=== PATIENT | male | born 1960 | race Caucasian/White ===

== ENCOUNTER → 2017-03-27 | Outpatient (CLI) | payer OTHER ==
--- NOTE | 2017-03-27 19:40 | XR ---
EXAMINATION TYPE: XR chest 2V DATE OF EXAM: 03/27/2017 COMPARISON: Prior chest x-ray 11/30/2014 HISTORY: COPD TECHNIQUE: Frontal and lateral views of the chest are obtained. FINDINGS: There is no focal air space opacity, pleural effusion, or pneumothorax seen. Prominent maine ng volumes suggest underlying COPD. Biapical pleural thickening is stable. The heart is small. The o sseous structures are intact. IMPRESSION: Stable exam, no acute abnormality.
--- NOTE | 2017-03-27 20:48 | MR ---
EXAMINATION TYPE: MR knee LT wo con DATE OF EXAM: 03/27/2017 COMPARISON: Prior knee MRI 10/13/2015 HISTORY: Left Knee pain x20 years TECHNIQUE: Multiplanar, multisequence imaging of the left knee is performed without IV contrast. FINDINGS: MEDIAL MENISCUS: Anterior and posterior horns are intact without tear. LATERAL MENISCUS: Anterior and posterior horns are intact without tear. CRUCIATE LIGAMENTS: The anterior and posterior cruciate ligaments are intact and unremarkable. COLLATERAL LIGAMENTS: The medial collateral ligament and lateral collateral ligament complex are inta ct and unremarkable. EXTENSOR MECHANISM: Visualized quadriceps and patellar tendons are intact. EFFUSION: Small effusion again noted as on prior exam POPLITEAL CYST: No popliteal/quezada cyst. 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 OTHER: No additional significant abnormality is appreciated. IMPRESSION: Stable exam. Findings of chondromalacia patella.
== END ==
LOC: RADMRIMAIN 19:21
PROVIDERS: ATTEND Internal Medicine
DX: M22.42 Chondromalacia patellae, left knee (principal); J44.9 Chronic obstructive pulmonary disease, unspecified
CPT/HCPCS: 71020

== ENCOUNTER → 2018-10-05 | Outpatient (CLI) | payer MEDICARE ==
--- NOTE | 2018-10-05 22:30 | MR ---
EXAMINATION TYPE: MR lumbar spine wo con DATE OF EXAM: 10/05/2018 COMPARISON: MRI lumbar spine October 13, 2015. HISTORY: Chronic LBP, BLE radic, no surgery/trauma TECHNIQUE: Multiplanar, multisequence imaging of the lumbar spine is performed without IV contrast. FINDINGS: Sagittal images of the lumbar spine show vertebral body heights and alignment to remain sat isfactory. Multilevel disc desiccation is redemonstrated with moderate to advanced disc space narrowi ng and vacuum disc phenomenon L5-S1 level again seen on sagittal images. No new large posterior disc herniations are present. The conus medullaris remains stable in position and signal ending superior L2 level. The bone marrow signal intensity is overall heterogeneous. Axial images at the T12-L1 level and L1-L2 levels show mild facet degenerative changes bilaterally wi thout suspicious disc herniation, spinal canal is preserved. Bilateral neural foramina are patent. No significant change from prior study. Axial images at L2-L3 level show mild broad disc bulge and mild facet degenerative changes bilaterall y. Spinal canal is preserved. Bilateral neuroforamina are patent. No significant change from prior. Axial images at L3-L4 level due to mild broad disc bulge and mild facet degenerative changes bilatera lly. Spinal canal is preserved. There is minimal to mild bilateral anterior inferior neural foraminal narrowing redemonstrated. No significant change from prior. Axial images at L4-L5 level show mild to moderate facet degenerative changes bilaterally. There is mi ld to moderate broad disc bulge seen. Spinal canal is preserved. There is mild right-sided anterior i nferior neural foraminal narrowing noted. No significant change from prior. Left-sided neural foramin a is patent. Axial images at L5-S1 level showed broad disc bulge with left lateral disc protrusion component and m [id number]-sd-gjvehris facet degenerative changes bilaterally. This [id number] left-sided inferior blaidmir ral foraminal narrowing. Right-sided neural foramen is patent. No significant change from prior. No suspicious incidental retroperitoneal findings are seen. IMPRESSION: Multilevel degenerative changes in lumbar spine as detailed above, no significant change or progression from 2016 MRI noted..
--- NOTE | 2018-10-05 22:33 | MR ---
EXAMINATION TYPE: MR knee LT wo con DATE OF EXAM: 10/05/2018 COMPARISON: MRI left knee March 27, 2017 HISTORY: Chronic lt knee pain, hx of injury several years ago TECHNIQUE: Multiplanar, multisequence images of the knee is performed without IV contrast. FINDINGS: MEDIAL MENISCUS: Anterior and posterior horns are intact without tear. LATERAL MENISCUS: Anterior and posterior horns are intact without tear. CRUCIATE LIGAMENTS: The anterior and posterior cruciate ligaments are intact and unremarkable. COLLATERAL LIGAMENTS: The medial collateral ligament and lateral collateral ligament complex are inta ct and unremarkable. EXTENSOR MECHANISM: Visualized quadriceps and patellar tendons are intact. EFFUSION: No significant suprapatellar joint effusion. POPLITEAL CYST: No popliteal/quezada cyst. TRICOMPARTMENT SPACES: Mild to moderate narrowing inferior patellofemoral compartment remains present . Medial and lateral tibiofemoral compartments are maintained. Mild patellofemoral compartment spurri ng is seen. CARTILAGE: There is focal chondral malacia patella with full-thickness cartilaginous loss along poste rior patellar pole particularly inferiorly. Some reactive osseous changes on posterior aspect of chowdary llar identified. BONE MARROW SIGNAL: No new bone marrow changes identified outside of the posterior patella. OTHER: No additional significant abnormality is appreciated. IMPRESSION: Redemonstration of patellofemoral degenerative change with significant chondromalacia pat cristhian redemonstrated. No new meniscal or ligamentous tear is seen. No significant change from prior MR I.
== END | disposition home or self-care (01) ==
LOC: RADMRIMAIN 19:10
PROVIDERS: ATTEND Internal Medicine
DX: M47.816 Spondylosis without myelopathy or radiculopathy, lumbar region (principal); M22.42 Chondromalacia patellae, left knee; M17.12 Unilateral primary osteoarthritis, left knee
CPT/HCPCS: 72148

== ENCOUNTER → 2021-01-17 | Outpatient (CLI) | payer MEDICARE ==
--- NOTE | 2021-01-17 16:13 | XR ---
EXAMINATION TYPE: XR chest 2V DATE OF EXAM: 01/17/2021 COMPARISON: Chest x-ray 03/27/[address] 05/16/2011 HISTORY: J 44.9 TECHNIQUE: Frontal and lateral views of the chest are obtained. FINDINGS: There is no focal air space opacity, pleural effusion, or pneumothorax seen. The cardiac silhouette size is within normal limits. Biapical pleural thickening is again noted. Prominent lung v olumes could be indicative of underlying COPD. The osseous structures are intact. IMPRESSION: No acute cardiopulmonary process. There is underlying emphysema.
== END | disposition home or self-care (01) ==
LOC: LABWHC1 14:16
PROVIDERS: ATTEND Physician Assistant
DX: E11.9 Type 2 diabetes mellitus without complications (principal); J44.9 Chronic obstructive pulmonary disease, unspecified
CPT/HCPCS: 36415; 71046; 83036